=== PATIENT | male | born 1950 | race Caucasian/White ===

== ENCOUNTER 2021-08-23 18:52 | Emergency (ER) | payer MEDICARE, OTHER, BC, SELFPAY ==
[2021-08-23 18:53] VITALS: BP 143/89; PULSE 104; RESP 18; TEMP 35.8; O2SAT 96; BMI 32.8
--- NOTE | 2021-08-23 19:24 | RAD_ITS ---
STUDY: X-RAY - ABDOMEN/PELVIS REASON FOR EXAM: Male, 70 years old. Constipation TECHNIQUE: Two AP supine views of the abdomen and pelvis. COMPARISON: CT of the chest dated 11/21/2017 FINDINGS: Normal visualized lung bases. There is an unremarkable bowel gas pattern. There is no demonstrated free abdominal air. There are calcified phleboliths in the pelvis. There are diffuse degenerative changes of the visualized lumbar spine. RAD/Abdomen Single View (Portable) IMPRESSION: Nonspecific bowel gas pattern. Electronically Signed: Ashlee Leigh MD at 19:59 EDT Tel , Service support ,
--- NOTE | 2021-08-23 20:33 | EX.ED.DYSGE1 ---
HPI History of Present Illness Chief Complaint: Constipation Informant: patient Narrative Narrative: Patient presents with constipation. He states he was doing fine until he was started on iron about 2 to 3 weeks ago. He states it immediately bound him up. It sounds like he was taking it 3 times a day initially. He has now stopped that. He did move small bowel movements this morning. About a week ago he was constipated and he took a stool softener and he had a large bowel movement but then stopped it. He then started to bind up again. He has now quit the iron. He is still eating and drinking plenty. He has a good appetite. He has no pain. He states sometimes he feels slightly bloated. He has never had back pain. No fevers or chills. 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 He was in a clinical trial for meds to reduce recurrence. That ended about 4 months ago. He never had any problems like this. He is currently on no medications. [facility] Medical History GERD (gastroesophageal reflux disease) High cholesterol Home Medications doxycycline monohydrate 100 mg PO BID #20 cap 11/14/17 [Rx Last Taken Unknown] hydrocodone-acetaminophen 1 - 2 tab PO Q4H PRN PRN 3 Days #12 tab 11/14/17 [Rx Last Taken Unknown] benzonatate [Tessalon Perle] 100 mg PO PRN PRN 11/21/17 [History Last Taken Unknown] Allergy/AdvReac Type Severity Reaction Status Date / Time bee venom protein (honey bee) Allergy Anaphylaxis Verified 08/23/21 18:57 Social History Smoking Status: Never smoker ROS ROS ED Constitutional Constitutional ED: Denies chills, fever(s) or sweats ENT ENT ED: Denies rhinorrhea or sore throat Cardiovascular Cardiovascular: Denies chest pain or palpitations Respiratory/Chest Respiratory/Chest: Denies cough or dyspnea Gastrointestinal Gastrointestinal: Reports constipation; Denies abdominal pain, diarrhea, nausea or vomiting Genitourinary Genitourinary ED: Denies dysuria or hematuria Musculoskeletal Musculoskeletal: Denies back pain or neck pain Integumentary Denies rash Neurologic Neurologic: Denies paresthesias or weakness Endocrine Endocrinology: Denies polydipsia or polyuria Allergic/Immunologic Allergic/Immunologic ED: Denies urticaria EXAM Physical Exam Const Vital Signs: 08/23/21 18:53 Temperature 96.4 F L Temperature Source Temporal Pulse Rate 104 H Respiratory Rate 18 Blood Pressure 143/89 H Blood Pressure Mean 107 Pulse Ox 96 Oxygen Delivery Method Room Air Positive well nourished and well developed General Appearance ED: well developed and NAD HEENT Negative for trauma Eyes General Eye ED: Negative for pale conjunctiva or scleral icterus Neck no JVD Chest Wall inspection of chest normal Resp normal respiratory effort and clear to auscultation bilaterally Effort and Inspection: Negative for pain with movement Auscultation: Negative for rales, rhonchi or wheezes Cardio regular rate, regular rhythm and no murmurs GI normal to inspection, nondistended, normoactive bowel sounds, non-tender, non-distended and no masses GI Narrative: Abdomen is actually very benign to exam. Auscultation: normoactive bowel sounds Palpation: soft Back/Spine no CVA tenderness Extremity normal to inspection Neuro Sensorium / Orientation: alert Skin no rashes or lesions noted MDM MDM MDM Narrative Medical decision making narrative: Patient wanted something to help go. I did convince him to get an x-ray. X-ray shows nonspecific bowel pattern. However, looking at the films he has a fair amount of stool in the right side. Rectal exam or enema I do not think is going to help him. We did discuss fiber and fluids. He should not take the iron at this time. We will get him magnesium citrate. If he develops fever, pain, lightheadedness or other symptoms he needs may need to return. He states he has had a tunnel blood work done and his electrolytes are always good. He would really like medicines to help him and then go home. Radiography Diagnostic Testing: Clinical Impression(s) from Imaging Studies [facility] X-Ray 08/23/21 19:24 IMPRESSION: Nonspecific bowel gas pattern. Electronically Signed: Ashlee Leigh MD at 19:59 EDT Tel , Service support , Discharge Plan Triage Chief Complaint: Constipation ED Provider: Gene Leon Dx/Rx/DC Orders Clinical Impression: Constipation Instructions: ED Constipation (Adult) Prescriptions: No Action hydrocodone-acetaminophen 1 TABLET tablet 1 - 2 tab PO Q4H PRN PRN (Reason: Pain) 3 Days Qty: 12 RF: 0 doxycycline monohydrate 100 MG capsule 100 mg PO BID Qty: 20 RF: 0 benzonatate [Tessalon Perles] 100 MG capsule 100 mg PO PRN PRN (Reason: Cough) RF: 0 Primary Care Provider: Zachary Heart Referrals: Zachary Heart MD [Primary Care Provider] - 3-5 Days if not improving Disposition Disposition: Home, Self Care
[2021-08-23] MEDS: Magnesium Citrate 300 ML PO (20:43)
== END 2021-08-23 20:44 | disposition home or self-care (01) ==
PROVIDERS: Emergency Provider Emergency Medicine; PCP Internal Medicine
DX: K59.00 Constipation, unspecified (principal)
CPT/HCPCS: 74018; 99282